=== PATIENT | male | born 1945 | race Caucasian/White ===

== ENCOUNTER 2021-10-27 05:44 | Observation (INO) ==
[2021-10-27] MEDS ORDERED: Lactated Ringers 1000 ml BAG 1,000 ML IV SCH (06:00)
[2021-10-27] MEDS ORDERED: Famotidine IV 10 MG/ML 2 ml VIAL (20 mg) IV ONE (06:00)
[2021-10-27] MEDS ORDERED: Buffered Lidocaine 1% SYRIN 1 ml INTRADERM ONE ×2 (06:00→06:12)
[2021-10-27] MEDS ORDERED: cefTRIAXone 2 GM ADDV.VIAL ONE (06:12)
[2021-10-27] MEDS ORDERED: Famotidine IV 10 MG/ML 2 ml VIAL (20 mg) ONE (06:12)
[2021-10-27] MEDS ORDERED: Midazolam 5 mg/5 ml VIAL 1 mg/ml 5 ml VIAL (5 mg) ONE (07:01)
[2021-10-27] MEDS ORDERED: fentaNYL 100 mcg/2 ml 50 MCG/ML VIAL ONE (07:01)
[2021-10-27] MEDS ORDERED: Dexamethasone IV 4 MG/ML VIAL 1 ml VIAL ONE (07:01)
[2021-10-27] MEDS ORDERED: Ondansetron 4 mg VIAL 2 MG/ML 2 ml VIAL ONE (07:01)
[2021-10-27] MEDS ORDERED: Propofol 10 MG/ML 20 ML BTL ONE ×2 (07:01→08:53)
[2021-10-27] MEDS ORDERED: Lidocaine 2% PF 5 ML VIAL ONE (07:01)
[2021-10-27] MEDS ORDERED: Acetaminophen IV 1 GM/100ML 100 ML IV ONE (08:32)
[2021-10-27] MEDS ORDERED: Naloxone 0.4 mg VIAL 0.4 mg/ml 1 ml VIAL IV PRN (09:07)
[2021-10-27] MEDS ORDERED: Ondansetron 4 mg VIAL 2 MG/ML 2 ml VIAL IV PRN (09:07)
[2021-10-27] MEDS ORDERED: fentaNYL 100 mcg/2 ml 50 MCG/ML VIAL IV PRN (09:07)
[2021-10-27] MEDS ORDERED: Lidocaine 2% JELLY 6 ML TOPICAL PRN (12:37)
[2021-10-27] MEDS: NS 0.9% 1000 ml BAG 1,000 ML IV SCH ×3 (12:47→20:25)
[2021-10-27] MEDS: oxyCODONE/Acetamin 5/325 mg TAB PO PRN ×2 (17:50→23:43)
[2021-10-28] MEDS: NS 0.9% 1000 ml BAG 1,000 ML IV SCH (03:07)
[2021-10-28] MEDS: oxyCODONE/Acetamin 5/325 mg TAB PO PRN (05:55)
[2021-10-28 08:24] VITALS: BP 147/68
[2021-10-28] MEDS ORDERED: Vitamin THERAPEUTIC TAB PO SCH (09:00)
== END 2021-10-28 10:59 | disposition home or self-care (01) ==
LOC: OR 05:44 → SSU 05:44
PROVIDERS: ADMIT Urology; ATTEND Urology